=== PATIENT | female | born 1990 | race Caucasian/White ===

== ENCOUNTER 2017-06-08 16:28 | Emergency (ER) | payer SELFPAY ==
[~2017-06-08] VITALS: Ht 157.5 cm; Wt 58.8 kg
[~2017-06-08 16:28] MED LIST: DEPO400I IM; ONDA4TAB7 SL
[2017-06-08 16:36] VITALS: BP 141/85; PULSE 90; RESP 16; TEMP 98.3; O2SAT 99
--- NOTE | 2017-06-08 17:44 | PD ---
HPI . Nausea Chief Complaint: GI Complaint Time Seen by Provider: 17:33 Travel History International Travel<30 days: No Contact w/Intl Traveler<30days: No Traveled to known affect area: No History of Present Illness HPI Patient presents with chief complaint of nausea without vomiting. Onset was this morning. It lasted a couple of hours. She felt very hot while she was nauseous. Her symptoms have now completely resolved. She had no abdominal pain. She denies any urinary tract symptoms such as dysuria, frequency or urgency. She denies diarrhea. She states that there is no way that she could be because she has not been sexually active in the recent past. PFSH Past Medical History Medical History: Denies Significant Hx Diminished Hearing: No Respiratory: Yes (ASTHMA) Immunizations Current: No Tetanus Vaccination: Unknown ?: Not LMP: 2 DAYS AGO Menopausal: No : 0 Past Surgical History Surgical History: No Previous Surgery Social History Alcohol Use: Yes (OCC) Tobacco Use: No Substance Use: No Allergies-Medications (Allergen,Severity, Reaction): Coded Allergies: No Known Allergies (Verified Adverse Reaction, Unknown, 06/08/17) Reported Meds & Prescriptions Reported Meds & Active Scripts Active No Active Prescriptions or Reported Medications Review of Systems Except as stated in HPI: all other systems reviewed are Neg Physical Exam Narrative GENERAL: Awake and alert and in no acute distress. SKIN: warm/dry. Good color. HEAD: Normocephalic. Atraumatic. EYES: Pupils equal and round. No scleral icterus. No injection or drainage. ENT: No nasal bleeding or discharge. Mucous membranes pink and moist. NECK: Trachea midline. Full range of motion without pain.. CARDIOVASCULAR: Regular rate and rhythm. RESPIRATORY: No accessory muscle use. Clear to auscultation. Breath sounds equal bilaterally. GASTROINTESTINAL: Abdomen soft. Nontender. Bowel sounds present. Nondistended. MUSCULOSKELETAL: No obvious deformities. NEUROLOGICAL: Awake and alert. No obvious cranial nerve deficits. Motor grossly within normal limits. Normal speech. PSYCHIATRIC: Appropriate mood and affect; insight and judgment normal. Data Data Last Documented VS Vital Signs Date Time Temp Pulse Resp B/P (MAP) Pulse Ox O2 Delivery O2 Flow Rate FiO2 06/08/17 16:36 98.3 90 16 141/85 (103) 99 Orders Orders Ed Discharge Order (06/08/17 17:42) [facility] Medical Decision Making Medical Screen Exam Complete: Yes Emergency Medical Condition: Yes Differential Diagnosis Differential diagnosis includes but is not limited to viral gastroenteritis, food poisoning, bowel obstruction, UTI Narrative Course This patient presents with a brief episode of nausea. It has completely resolved. She has a benign abdominal exam. She will be discharged home. Diagnosis Primary Impression: Nausea Patient Instructions: General Instructions, Acute Nausea and Vomiting (ED) Departure Forms: School Release, Return to School Date: Jun 09, 2017 Work Release, Enter return to work date: Jun 09, 2017 Tests/Procedures Scripts No Active Prescriptions or Reported Meds Disposition: 01 DISCHARGE HOME Condition: Stable Erika Francois MD Jun 08, 2017 17:44
== END 2017-06-08 17:49 | disposition home or self-care (01) ==
LOC: PHED 16:28
DX: R11.0 Nausea (principal)
CPT/HCPCS: 99281